=== PATIENT | female | born 1965 | race American Indian/Alaskan Native ===

== ENCOUNTER 2016-08-18 08:20 | Outpatient (CLI) | payer BC ==
--- NOTE | 2016-08-18 15:31 | Mammography Report ---
BILATERAL DIGITAL SCREENING MAMMOGRAM with CAD: 08/18/16 08:20:00 CLINICAL: Routine screening. COMPARISON:09/29/14 and 06/24/13 FINDINGS: The breasts are heterogeneously dense, which may obscure small masses. Right asymmetries require additional imaging.No architectural distortion or suspicious calcifications.The left breast is negative. IMPRESSION: Right asymmetries requiring further workup. BI-RADS CATEGORY: 0 -- Additional Imaging Evaluation Required RECOMMENDATION: Recall for right spot compression views and right breast ultrasound if needed. ACR BI-RADS MAMMOGRAPHIC CODES: 0 = Needs additional imaging evaluation; 1 = Negative; 2 = Benign; 3 = Probably benign; 4 = Suspicious; 5 = Malignant; 6 = Known biopsy-proven malignancy COMMENT: 1. Dense breast tissue, i.e., adenosis, fibrocystic changes, etc., may obscure an underlying neoplasm. 2. Approximately 10% of cancers are not detected with mammography. 3. A negative mammography report should not delay biopsy if a clinically suspicious mass is present. COMMENT: Patient follow-up letters are generated via our [employer] application.
== END 2016-08-18 08:21 | disposition home or self-care (01) ==
LOC: SPVWC 08:20
PROVIDERS: ATTEND Obstetrics & Gynecology
DX: Z12.31 Encounter for screening mammogram for malignant neoplasm of breast (principal)
CPT/HCPCS: 77067; G0202

== ENCOUNTER 2016-09-05 14:19 | Outpatient (CLI) | payer BC ==
--- NOTE | 2016-09-05 15:19 | Mammography Report ---
Spot compression magnification of density upper right breast and mid right breast followed by global sonographic examination right breast: Findings: There is persistence of density noted on spot magnification view of the right upper breast and right mid breast. The margin is partially obscured by glandular parenchyma however appears to be benign. Sonographic examination reveals cyst at 930, 3 cm from nipple. Does not appear to correspond to the densities seen on the mammogram. Impression: Moderately benign densities. Six-month followup recommended. BI-RADS CATEGORY: 3 = Probably benign ACR BI-RADS MAMMOGRAPHIC CODES: 0 = Needs additional imaging evaluation; 1 = Negative; 2 = Benign; 3 = Probably benign; 4 = Suspicious; 5 = Malignant; 6 = Known biopsy-proven malignancy COMMENT: 1. Dense breast tissue, i.e., adenosis, fibrocystic changes, etc., may obscure an underlying neoplasm. 2. Approximately 10% of cancers are not detected with mammography. 3. A negative mammography report should not delay biopsy if a clinically suspicious mass is present. COMMENT: Patient follow-up letters are generated in [employer].
== END 2016-09-05 14:20 | disposition home or self-care (01) ==
LOC: SPVWC 14:19
PROVIDERS: ATTEND Obstetrics & Gynecology
DX: R92.8 Other abnormal and inconclusive findings on diagnostic imaging of breast (principal)
CPT/HCPCS: 76641; G0206

== ENCOUNTER 2020-08-28 15:29 | Outpatient (CLI) | payer OTHER ==
--- NOTE | 2020-08-28 16:01 | Mammography Report ---
DIGITAL DIAGNOSTIC MAMMOGRAM WITH CAD CONVENTIONAL, 08/28/2020 CLINICAL INFORMATION / INDICATION: Right dark NIPPLE DISCHARGE TECHNIQUE: Digital bilateral mammographic imaging was performed. This examination was interpreted with the benefit of Computer-aided Detection analysis. COMPARISON: 01/18/2018, 08/18/2016, 09/29/2014 FINDINGS: Breast Density: The breasts are heterogeneously dense, which may obscure small masses. No dominant mass, suspicious calcifications or architectural distortion in either breast. There is a stable density in the superior right breast unchanged since 2014 IMPRESSION: No suspicious abnormalities seen on the mammogram. This is a benign mammogram. Ultrasound is recommended to further evaluate for cause of the patient's nipple discharge. Follow up recommendation: Ultrasound BI-RADS Category 0: Incomplete. Needs additional imaging evaluation and/or prior mammograms for kendell dougherty. A "normal" or negative report should not discourage follow up or biopsy of a clinically significant f inding. A written summary of these findings will be mailed to the patient. The patient will be entered into a mammography reporting system which will generate a reminder letter for the patient's next appointmen t at the appropriate interval. According to the [employer], yearly mammograms are recommended starting at age 40 and continuing as long as a woman is in good health. Breast MRI is recommended for women with an rhina roximately 20-25% or greater lifetime risk of breast cancer, including women with a strong family his tory of breast or ovarian cancer and women who have been treated for Hodgkin's disease. Signer Name: Jatin Worrell MD Signed: 08/28/2020 3:56 PM Workstation Name: [id number]
== END 2020-08-28 15:30 | disposition home or self-care (01) ==
LOC: SPVWC 15:29
PROVIDERS: ATTEND Family Medicine
DX: R92.8 Other abnormal and inconclusive findings on diagnostic imaging of breast (principal)
CPT/HCPCS: 77066

== ENCOUNTER 2020-09-11 15:15 | Outpatient (CLI) | payer OTHER ==
--- NOTE | 2020-09-11 18:14 | Ultrasound Report ---
ULTRASOUND BREAST RIGHT LIMITED, 09/11/2020 CLINICAL INFORMATION / INDICATION: NIP DISCHARGE. Patient presents for evaluation of right dark nippl e discharge. TECHNIQUE: Targeted ultrasound evaluation was performed of the area of interest. COMPARISON: Prior mammogram 08/28/2020 FINDINGS: Targeted ultrasound of the subareolar right breast reveals a single mildly prominent duct, but no int raductal mass or suspicious sonographic abnormality is identified. IMPRESSION: 1. A single mildly prominent duct is seen in the subareolar right breast, but no intraductal mass or suspicious sonographic abnormality is identified. Recommend clinical correlation, and if there is santiago oing clinical concern, a breast MRI could be performed for further evaluation. Follow up recommendation: Routine yearly BI-RADS Category 2: Benign. A normal or "negative" report should not preclude biopsy or follow-up of a clinically suspicious find ing. Signer Name: Vivienne Mcknight MD Signed: 09/11/2020 6:10 PM Workstation Name: [id number]
== END 2020-09-11 15:16 | disposition home or self-care (01) ==
LOC: US 15:15
PROVIDERS: ATTEND Internal Medicine
DX: N64.52 Nipple discharge (principal)